=== PATIENT | female | born 1965 | race Two or more races ===

== ENCOUNTER → 2018-02-12 | Outpatient (CLI) | payer BC ==
--- NOTE | 2018-02-12 15:34 | RAD ---
CHEST PA LATERAL History: COUGH AND CHEST PAIN, PATIENT DOESN'T SPEAK MAORI. Comparison: March 01, 2004 image, but no report available. Heart size: Within normal limits. Radha/mediastinum: Aorta mildly tortuous. Lungs: No focal airspace consolidation. Pleura: No evidence of pleural effusion. Pneumothorax: None visualized Bones: Regional skeleton appears grossly intact. Miscellaneous: None Impression: No acute radiographic findings. Electronically signed by: Derick Mendoza MD (02/12/2018 3:31 PM) [facility]
== END | disposition home or self-care (01) ==
LOC: RAD 13:01
PROVIDERS: ATTEND Internal Medicine Cardiovascular Disease
DX: R05 Cough (principal); R07.9 Chest pain, unspecified
CPT/HCPCS: 71046